=== PATIENT | male | born 1955 | race Caucasian/White ===

== ENCOUNTER 2020-11-08 20:05 | Emergency (ER) | payer MEDICARE, MEDICAID, SELFPAY ==
[2020-11-08 20:20] VITALS: BP 136/84; PULSE 109; RESP 18; O2SAT 100
[2020-11-08 20:51] LABS: Basophils Percent Auto 0.3 % (0.2-1.2); Eosinophils Absolute Auto 0.1 K/mm3 (0-0.3); Eosinophils Percent Auto 0.8 % (0-4.4); Hematocrit 38.3 % (42.0-52.0); Hemoglobin 11.7 g/dL (14.0-18.0); Immature Granulocyte Absolute 0.02 K/mm3 (0.00-0.031); Immature Granulocyte Percent A 0.2 % (0-0.5); Lymphocytes Percent Auto 12.1 % (18.3-44.2); Mean Corpuscular HGB Conc 30.5 g/dl (32-36); Mean Corpuscular Volume 88.2 fl (80-100); Mean Platelet Volume 10.8 fl (7.4-10.4); Monocytes Absolute Auto 0.6 K/mm3 (0.1-0.6); Monocytes Percent Auto 6.2 % (2.6-8.5); Neutrophils Absolute Auto 7.3 K/mm3 (1.3-6.7); Neutrophils Percent Auto 80.4 % (45.5-73.1); Platelet Count Result 282 k/mm3 (150-375); Red Blood Count 4.34 M/mm3 (4.6-6.20); Red Cell Distribution Width 15.7 % (11.5-14.5); White Blood Count 9.1 K/mm3 (4.5-10.0)
[2020-11-08 20:54] LABS: Add Urine Microscopic? YES; Appearance Urine Clear (Clear); Bilirubin Urine Negative (Negative); Blood Urine Negative (Negative); Color Urine Yellow (Yellow); Glucose Urine UA Negative (Negative); Ketones Urine Negative (Negative); Leukocyte Esterase Ur Negative LEU/UL (Negative); Mucus Urine Rare /lpf; Nitrate Urine Negative (Negative); Protein Urine Negative (Negative); RBC Urine 0-2 /hpf (0-2); Specific Grav Ur 1.013 (1.001-1.035); WBC Urine 0-3 /hpf
[2020-11-08 20:56] LABS: Ethanol < 10 mg/dL (<10)
[2020-11-08 20:57] LABS: Anion Gap 10 mmol/L (8-16); Blood Urea Nitrogen 12 mg/dL (9-20); Calcium 8.7 mg/dL (8.4-10.2); Carbon Dioxide 27 mmol/L (22-30); Chloride 106 mmol/L (98-107); Estimated CRCL calculation 65 ml/min; Estimated Glomerular Filt Rate > 60; Glucose 141 mg/dL (65-110); Potassium 4.1 mmol/L (3.4-5.0); Sodium 143 mmol/L (137-145)
[2020-11-08 22:03] LABS: Amphetamine Screen Urine Negative (Negative); Barbiturate Screen Urine Negative (Negative); Benzodiazepines Screen Urine Negative (Negative); Cannabinoid Screen Urine Negative (Negative); Cocaine Screen Urine Negative (Negative); Methadone Screen Urine Negative (Negative); Opiate Screen Urine Negative (Negative); Phencyclidine Screen Urine Negative (Negative)
--- NOTE | 2020-11-08 22:27 | PC.NURSE ---
[facility] CALLED ETA 1 HOUR
--- NOTE | 2020-11-08 23:09 | PC.NURSE ---
CHAVO FROM [facility] AT BEDSIDE.
--- NOTE | 2020-11-08 23:40 | ED.PSYCH ---
HPI - Psych General Chief Complaint: Psychiatric Symptoms Stated Complaint: psych evaluation, suicidal ideation Time Seen by Provider: 11/08/20 20:13 History of Present Illness HPI Narrative: Patient is a 65-year-old male who presents ER for psychiatric evaluation. Reports he tried contacting [facility] today to be evaluated but then he was unable to get in. He received a ride here so he could be evaluated. He denies any SI or HI. He has untreated schizophrenia for the last 2 months. He reports he is hearing voices but they are not telling him to harm himself. He denies any drug or alcohol ingestion. Related Data Allergies Allergy/AdvReac Type Severity Reaction Status Date / Time NKDA Allergy Unknown Uncoded 10/06/02 10:37 NKFA Allergy Unknown Uncoded 10/06/02 10:37 NA Allergy Uncoded 07/28/08 10:37 Review of Systems Review of Systems: All systems reviewed & are unremarkable except as noted in HPI and below Constitutional: Constitutional: Denies chills, Denies fever(s) and Denies weakness ENT: Denies nasal congestion and Denies sore throat Cardiovascular: Cardiovascular: Denies chest pain and Denies radiating jaw, neck or arm pain Respiratory: Respiratory: Denies cough and Denies dyspnea Psychiatric: Psychiatric: Denies anxiety, Denies depression, Denies homicidal ideation and Denies suicidal ideation Comments: Auditory hallucinations present PMFSH Past Medical History Medical History (Updated 11/08/20 @ 23:47 by Jules Liu MD) Depression Hypertension Schizophrenia Surgical History Surgical History (Updated 11/08/20 @ 23:45 by Jules Liu MD) History of cholecystectomy Social History Social History (Updated 11/08/20 @ 23:44 by Jules Liu MD) Smoking status: Never smoker Exam Narrative: Exam Narrative: GENERAL: Well-appearing, well-nourished, and in no acute distress. HEAD: Normocephalic, atraumatic. ENT: Mucous membranes moist. CHEST: Clear to auscultation. No respiratory distress. HEART: Regular rate and rhythm. Normal peripheral pulses. ABDOMEN: Soft, nontender, nondistended. EXTREMITIES: Normal range of motion. No edema. SKIN: Warm, dry, no rash. NEURO: Alert and oriented x3. PSYCH: Flat affect, not responding to internal stimuli but endorses auditory hallucinations. No SI/HI.. Course Course Emergency Course: Patient has been seen by crisis. They are going to continue to contact him and give him coordinated care. Vital Signs Vital signs: Vital Signs Pulse Rate 109 H 11/08/20 20:20 Respiratory Rate 18 11/08/20 20:20 Blood Pressure 136/84 11/08/20 20:20 Pulse Oximetry 100 11/08/20 20:20 Pulse Rate 109 H 11/08/20 20:20 Respiratory Rate 18 11/08/20 20:20 Blood Pressure 136/84 11/08/20 20:20 Pulse Oximetry 100 11/08/20 20:20 MDM - Psych Lab Data Result diagrams: 11/08/20 20:37 11/08/20 20:37 Labs: Lab Results 11/08/20 11/08/20 11/08/20 Range/Units 20:36 20:37 20:37 WBC 9.1 (4.5-10.0) K/mm3 RBC 4.34 L (4.6-6.20) M/mm3 Hgb 11.7 L (14.0-18.0) g/dL Hct 38.3 L (42.0-52.0) % MCV 88.2 (80-100) fl MCH 27.0 (26-34) pg MCHC 30.5 L (32-36) g/dl RDW 15.7 H (11.5-14.5) % Plt Count 282 (150-375) k/mm3 MPV 10.8 H (7.4-10.4) fl Immature Gran % (Auto) 0.2 (0-0.5) % Neut % (Auto) 80.4 H (45.5-73.1) % Lymph % (Auto) 12.1 L (18.3-44.2) % Nelson % (Auto) 6.2 (2.6-8.5) % Eos % (Auto) 0.8 (0-4.4) % Baso % (Auto) 0.3 (0.2-1.2) % Lymph # (Auto) 1.10 (0.9-3.2) K/mm3 Nelson # (Auto) 0.6 (0.1-0.6) K/mm3 Eos # (Auto) 0.1 (0-0.3) K/mm3 Baso # (Auto) 0.0 (0.0-0.1) K/mm3 Abs Immat Gran (auto) 0.02 (0.00-0.031) K/mm3 Absolute Neuts (auto) 7.3 H (1.3-6.7) K/mm3 Absolute Nucleated RBC 0.0 (0.0-0.012) K/mm3 Nucleated RBC % 0.0 (0.0-0.2) % Sodium 143 (137-145) mmol/L Potassium 4.1 (3.4-5.0) mmol/L
--- NOTE | 2020-11-08 23:45 | PC.NURSE ---
Spoke with Maida from crisis. Stated she recommends pt for discharge, no safety plan required. Pt denying SI/HI, just wanted ED to facilitate speaking with crisis.
[2020-11-09 00:08] VITALS: BP 132/74; PULSE 76; RESP 16; O2SAT 98
== END 2020-11-09 00:08 | disposition home or self-care (01) ==
PROVIDERS: Emergency Provider Emergency Medicine; PCP Urology
DX: F20.9 Schizophrenia, unspecified (principal); F32.9 Major depressive disorder, single episode, unspecified; I10 Essential (primary) hypertension
CPT/HCPCS: 36415; 80048; 80307; 81001; 84443; 85025; 99284

== ENCOUNTER 2023-09-12 12:58 | Emergency (ER) | payer OTHER, SELFPAY ==
--- NOTE | 2023-09-12 13:13 | ECG_ITS ---
[facility] [address] Test Date: 2023-09-12 Pat Name: Nasima Wells Department: Room: Gender: M Senior Analyst Programmer: Uri : 1955 Requested By: Selvin Melissa Order Number: [id number] Soraya MD: Butch Miner D.O. Measurements Intervals Wall Rate: 69 P: 74 WI: 203 QRS: 61 QRSD: 98 T: 72 QT: 392 QTc: 422 Interpretive Statements SINUS RHYTHM BORDERLINE AV CONDUCTION DELAY BORDERLINE ECG No previous ECG available for comparison Electronically Signed On 09-12-2023 16:47:06 CDT by Butch Miner D.O.
--- NOTE | 2023-09-12 13:14 | ED.GENADULT ---
HPI - General Adult General Chief complaint: Psychiatric Symptoms Stated complaint: SI Time Seen by Provider: 09/12/23 13:04 History of Present Illness HPI narrative: 68-year-old male that is homeless with schizophrenia. Patient has been staying at [facility]. Patient does report having some suicidal thoughts but denies any intent to act on these thoughts. [facility] was going to have the man evaluated at [facility] but he declined EMS transport to [facility]. Upon arrival to the emergency department [facility] patient was unsure of why he declined transport to [facility] but states he is just trying to get to some place that can help take care of him. Patient is pleasant at time of evaluation. Related Data Home Medications Medication Instructions Recorded Confirmed clopidogrel 75 mg tablet 75 mg PO DAILY 04/27/21 04/27/21 cyanocobalamin (vitamin B-12) 5,000 mcg PO DAILY 04/27/21 04/27/21 5,000 mcg capsule ferrous sulfate 325 mg (65 mg 325 mg PO DAILY 04/27/21 04/27/21 iron) tablet,delayed release finasteride 5 mg tablet 5 mg PO DAILY 04/27/21 04/27/21 folic acid 1 mg tablet 1 mg PO DAILY 04/27/21 04/27/21 hydroxyzine HCl 25 mg tablet 25 mg PO BID PRN 04/27/21 04/27/21 insulin syringe-needle U-100 1 mL 04/27/21 04/27/21 29 gauge x 1/2 (BD Insulin Syringe Safety-Afua) promethazine 12.5 mg tablet 6.25 mg PO QID 04/27/21 04/27/21 quetiapine 300 mg tablet 300 mg PO QHS 04/27/21 04/27/21 sertraline 100 mg tablet 100 mg PO DAILY 04/27/21 04/27/21 tamsulosin 0.4 mg capsule 0.4 mg PO DAILY 04/27/21 04/27/21 triamcinolone acetonide 0.1 % 1 applic topical BID 04/27/21 04/27/21 topical cream Allergies Allergy/AdvReac Type Severity Reaction Status Date / Time NKDA Allergy Unknown Unknown Uncoded 04/27/21 11:17 Review of Systems Review of Systems: All systems reviewed & are unremarkable except as noted in HPI and below PMFSH Past Medical History Medical History (Updated 09/13/23 @ 00:01 by Background Daemon) Colon cancer screening Depression Gluten intolerance Hypertension Iron deficiency anemia Schizophrenia Surgical History Surgical History History of cholecystectomy Social History Social History (Updated 04/27/21 @ 11:17 by Cira Marsh CMA) Smoking status: Never smoker Alcohol intake: never Substance use type: former substance user Exam Narrative: APPEARANCE: Dishevelled appearing HEAD: normocephalic, atraumatic. EYES: PERRLA/EOMI, conjunctivae clear. NOSE: Normal no drainage EARS:TMS clear with good light reflex. THROAT: Pharynx clear, no exudate. NECK: Supple. No adenopathy, no masses. RESPIRATORY: Airway patent, respirations nonlabored. Clear to auscultation bilaterally, no rales, rhonchi, wheezing. CARDIOVASCULAR: Regular rate and rhythm without murmurs rubs or gallops. ABDOMINAL: Soft, nontender, nondistended, normal bowel sounds MUSCULOSKELETAL: Moves all extremities. Strength/ROM intact, No edema, No calf tenderness. NEURO: Alert. Cranial nerves II through XII intact. Grossly intact SKIN: Warm, dry. Normal Color Course Vital Signs Vital signs: Vital Signs Temperature 98.1 F 09/12/23 13:28 Pulse Rate 80 09/12/23 13:28 Respiratory Rate 18 09/12/23 13:28 Blood Pressure 104/65 09/12/23 13:28 Pulse Oximetry 98 09/12/23 13:28 Temperature 99 F 09/12/23 21:16 Pulse Rate 90 09/12/23 21:16 Respiratory Rate 17 09/12/23 21:16 Blood Pressure 118/73 09/12/23 21:16 Pulse Oximetry 99 09/12/23 21:16 Medical Decision Making MDM Narrative Medical decision making narrative: 68-year-old male with schizophrenia present to the emergency department for evaluation for having increased suicidal thoughts. Patient denies any intent to act on these thoughts at this time. Patient is medically cleared for crisis evaluation. Patient is medically cleared for transportation and inpatient psychia
--- NOTE | 2023-09-12 13:26 | PC.NURSE ---
Dr. Shirley consulted on patient suicide risk assessment. Dr. Shirley states no sitter needed.
[2023-09-12 13:28] VITALS: BP 104/65; PULSE 80; RESP 18; TEMP 36.7; O2SAT 98
[2023-09-12 13:41] LABS: Basophils Percent Auto 0.5 % (0.2-1.2); Eosinophils Absolute Auto 0.1 K/mm3 (0-0.3); Eosinophils Percent Auto 0.8 % (0-4.4); Hematocrit 44.2 % (42.0-52.0); Hemoglobin 14.6 g/dL (14.0-18.0); Immature Granulocyte Absolute 0.02 K/mm3 (0.00-0.031); Immature Granulocyte Percent A 0.3 % (0-0.5); Lymphocytes Absolute Auto 1.55 K/mm3 (0.9-3.2); Lymphocytes Percent Auto 19.9 % (18.3-44.2); Mean Corpuscular Hemoglobin 30.7 pg (26-34); Mean Corpuscular Volume 92.9 fl (80-100); Mean Platelet Volume 10.3 fl (7.4-10.4); Monocytes Absolute Auto 0.6 K/mm3 (0.1-0.6); Monocytes Percent Auto 7.2 % (2.6-8.5); Neutrophils Absolute Auto 5.5 K/mm3 (1.3-6.7); Neutrophils Percent Auto 71.3 % (45.5-73.1); Platelet Count Result 247 k/mm3 (150-375); Red Blood Count 4.76 M/mm3 (4.6-6.20); Red Cell Distribution Width 13.6 % (11.5-14.5); White Blood Count 7.8 K/mm3 (4.5-10.0)
--- NOTE | 2023-09-12 13:42 | PC.NURSE ---
Lunch ordered for patient
[2023-09-12 13:45] LABS: Appearance Urine Clear (Clear); Bacteria Urine None Seen /hpf; Bilirubin Urine Negative (Negative); Blood Urine Negative (Negative); Color Urine Yellow (Yellow); Glucose Urine UA Negative (Negative); Ketones Urine Negative (Negative); Leukocyte Esterase Ur Trace LEU/UL (Negative); Nitrate Urine Negative (Negative); Non Pathogenic Casts 0-2; Protein Urine Negative (Negative); RBC Urine 0-2 /hpf (0-2); Specific Grav Ur 1.014 (1.001-1.035); Squamous Epithelial Cell Urine None Seen /hpf (Few); WBC Urine 0-5 /hpf (0-3)
[2023-09-12 13:52] LABS: Acetaminophen < 10 ug/mL (10-30); Ethanol < 10 mg/dL (<10); Salicylate < 1.0 mg/dL (2-20)
[2023-09-12 13:53] LABS: Alanine Aminotransferase 34 U/L (6-50); Albumin Level 4.3 g/dL (3.5-5.1); Alkaline Phosphatase 104 U/L (38-126); Anion Gap 7 mmol/L (4-12); Aspartate Amino Transferase 32 U/L (17-59); Bilirubin,Total 0.6 mg/dL (0.2-1.3); Blood Urea Nitrogen 10 mg/dL (9-20); Calcium 9.2 mg/dL (8.4-10.2); Carbon Dioxide 28 mmol/L (22-30); Chloride 105 mmol/L (98-107); Estimated CRCL calculation 74 ml/min; Estimated Glomerular Filt Rate > 60; Glucose 121 mg/dL (65-110); Potassium 3.4 mmol/L (3.4-5.0); Sodium 140 mmol/L (137-145)
[2023-09-12 13:55] LABS: Add Urine Microscopic? YES
[2023-09-12 14:04] LABS: Amphetamine Screen Urine Negative (Negative); Barbiturate Screen Urine Negative (Negative); Benzodiazepines Screen Urine Negative (Negative); Cannabinoid Screen Urine Negative (Negative); Cocaine Screen Urine Negative (Negative); Methadone Screen Urine Negative (Negative); Opiate Screen Urine Negative (Negative); Phencyclidine Screen Urine Negative (Negative)
[2023-09-12 14:18] LABS: Influenza A QL RT-PCR Negative (Negative); Influenza B QL RT-PCR Negative (Negative); RSV RNA, RT-PCR Negative (Negative); SARS-CoV-2 RNA PCR Negative (Negative)
[2023-09-12 14:30] LABS: Thyroid Stimulating Hormone Reflex 0.586 uIU/mL (0.465-4.68)
--- NOTE | 2023-09-12 15:25 | PC.NURSE ---
Pt medically clear. Pt information faxed to [facility].
--- NOTE | 2023-09-12 15:53 | PC.NURSE ---
[facility] refused pt admittance.
--- NOTE | 2023-09-12 16:21 | PC.NURSE ---
Stacy Alejo called asking for the certificate for the involuntary form. Form faxed. She states she will call back after doctor consultation regarding acceptance.
--- NOTE | 2023-09-12 20:17 | PC.NURSE ---
Called [facility] back asking for update on acceptance status. Trish states pt has been accepted by Dr. Cortes for depression and will go to bed 5115-B
[2023-09-12 21:16] VITALS: BP 118/73; PULSE 90; RESP 17; TEMP 37.2; O2SAT 99
== END 2023-09-12 21:46 ==
PROVIDERS: Emergency Provider Emergency Medicine; PCP Urology
DX: R45.851 Suicidal ideations (principal); Z11.52 Encounter for screening for COVID-19; I10 Essential (primary) hypertension; D50.9 Iron deficiency anemia, unspecified; F32.A Depression, unspecified; F20.9 Schizophrenia, unspecified; Z90.49 Acquired absence of other specified parts of digestive tract; Z79.899 Other long term (current) drug therapy; Z79.4 Long term (current) use of insulin; Z59.01 Sheltered homelessness
CPT/HCPCS: 36415; 80053; 80307; 81001; 84443; 85025; 87637; 93005; 99285; J2704